=== PATIENT | male | born 1960 | race Caucasian/White ===

== ENCOUNTER 2019-07-28 09:07 | Emergency (ER) | payer OTHER ==
[~2019-07-28] VITALS: Ht 193 cm; Wt 108.5 kg
[2019-07-28 09:27] LABS: ABSOLUTE EOSINOPHILS 0.3 thou/uL (0.0-0.7); ABSOLUTE LYMPHOCYTES 1.8 thou/uL (0.8-5.3); ABSOLUTE MONOCYTES 0.6 thou/uL (0.0-1.2); ABSOLUTE NEUTROPHILS 4.5 thou/uL (1.6-8.1); BASOPHILS 0.6 %; EOSINOPHILS 4.1 %; HEMATOCRIT 40.9 % (42.0-52.0); HEMOGLOBIN 13.8 gm/dL (14.0-18.0); LYMPHOCYTES 24.7 %; MCH 29.8 pg (26.0-34.0); MCHC 33.8 g/dL (28.0-37.0); MCV 88.2 fL (80.0-100.0); MONOCYTES 8.3 %; MPV 7.7 fl. (7.2-11.1); NUCLEATED RBCS 0 /100WBC; PLATELET COUNT* 231 thou/uL (150-400); POLYS 62.3 %; RBC 4.64 mil/uL (4.50-6.00); RDW-CV 14.7 % (10.5-14.5); WBC 7.2 thou/uL (4.0-11.0)
[2019-07-28 09:32] LABS: ANION GAP 12 mmol/L (7-16); BUN 15 mg/dL (7-18); CALCIUM 8.5 mg/dL (8.5-10.1); CHLORIDE 107 mmol/L (98-107); CO2 25 mmol/L (21-32); POTASSIUM 3.1 mmol/L (3.5-5.1); SODIUM 144 mmol/L (136-145)
[2019-07-28 09:36] LABS: GLUCOSE 25 mg/dL (70-99)
[2019-07-28 09:42] LABS: ALBUMIN 3.6 g/dL (3.4-5.0); ALKALINE PHOSPHATASE 170 U/L (46-116); NT-PRO BRAIN NAT PEPTIDE 124 pg/mL (<300); SGOT 29 U/L (15-37); SGPT 22 U/L (30-65); TOTAL BILIRUBIN 0.6 mg/dL (<0.1-1.0); TOTAL PROTEIN 7.7 g/dL (6.4-8.2); TROPONIN-I LEVEL <0.06 ng/mL (<0.06)
[2019-07-28 10:04] LABS: APTT 27.1 Seconds (25.0-31.3)
[2019-07-28 10:09] LABS: PROTIME 10.3 Seconds (9.20-11.50)
[2019-07-28 10:19] LABS: URINE BILIRUBIN NEGATIVE (Negative); URINE BLOOD NEGATIVE (Negative); URINE CLARITY CLEAR; URINE COLOR YELLOW; URINE GLUCOSE-RANDOM NEGATIVE (Negative); URINE KETONES NEGATIVE (Negative); URINE LEUKOCYTES-REFLEX NEGATIVE (Negative); URINE NITRITE-REFLEX NEGATIVE (Negative); URINE PROTEIN NEGATIVE (Negative); URINE SPECIFIC GRAVITY 1.025 (1.005-1.030); URINE UROBILINOGEN 0.2 E.U./dl (0.2-1.0)
[2019-07-28 10:54] VITALS: BP 140/88
--- NOTE | 2019-07-30 07:32 | EKG ---
[place] [address] ELECTROCARDIOGRAM REPORT Name: SONIA FERNANDEZ Room: [facility]#: [id number] Admission: 07/28/19 Attend Phys: Discharge: 07/28/19 Date of : 62 Report #: [id number] THIS REPORT FOR: //name// [facility] ED Test Date: 2019-07-28 Test Time: 09:16:09 Pat Name: SONIA FERNANDEZ Department: Room: Gender: M [employer]: SAPPHIRE : 1960 Requested By: Femi Goff Order Number: [id number] MD: Sonia Bran Measurements Intervals [place] Rate: 76 P: 52 OR: 157 QRS: 22 QRSD: 101 T: 2 QT: 438 QTc: 493 Interpretive Statements Sinus rhythm Abnormal R-wave progression, early transition Borderline T wave abnormalities Borderline prolonged QT interval No previous ECG available for comparison Electronically Signed On 07-30-2019 7:32:37 CDT by Sonia Bran [email or web address] <ELECTRONICALLY SIGNED> By: Sonia Bran MD, [facility] 07/30/19 0732 0916 5 Sonia Bran MD, FACC /EPI
== END 2019-07-28 10:55 | disposition home or self-care (01) ==
LOC: M.ERS 09:07
PROVIDERS: Family Medicine
DX: E16.2 Hypoglycemia, unspecified (principal); Z85.89 Personal history of malignant neoplasm of other organs and systems; Z88.2 Allergy status to sulfonamides